=== PATIENT | female | born 1985 | race Hispanic/Latino ===

== ENCOUNTER 2018-12-03 18:05 | Emergency (ER) | payer SELFPAY ==
[2018-12-03] MEDS ORDERED: IPRATROPIUM BROM 0.5MG/2.5ML ONE (19:21)
[2018-12-03] MEDS ORDERED: HYDROCODONE/CHLORPHEN 5 ML/OSYR ONE (19:21)
[2018-12-03] MEDS ORDERED: ALBUTEROL 2.5 MG/3 ML NEB SOL ONE (19:21)
--- NOTE | 2018-12-03 19:35 | RAD REPORT ---
EXAM DESCRIPTION: Richmond Shafer (2 Views)12/03/2018 6:43 pm CLINICAL HISTORY: Cough COMPARISON: September 2018 FINDINGS: The lungs appear clear of acute infiltrate. The heart is normal size IMPRESSION: No acute abnormalities displayed
--- NOTE | 2018-12-03 19:52 | ER ---
Nurse's Notes [facility] Name: Nina Moreno Age: 33 yrs Sex: Female : 1985 Arrival Date: 12/03/2018 Time: 18:08 Bed 6 Private MD: Diagnosis: Bronchitis, not specified as acute or chronic Presentation: 12/03 18:13 Presenting complaint: Patient states: i went to see my PCP coz i was wheezing and he hj told me i had bronchitis; Rx me with ZPac, Mucinex and pro air; symptoms is worsening and my L lower back hurts; reports fever- T- 101.3; Tylenol taken at 12 noon;. Transition of care: patient was not received from another setting of care. Onset of symptoms was December 03, 2018. Risk Assessment: Do you want to hurt yourself or someone else? Patient reports no desire to harm self or others. Initial Sepsis Screen: Does the patient meet any 2 criteria? Yes Does the patient have a suspected source of infection? No. Patient's initial sepsis screen is negative. Care prior to arrival: None. 18:13 Method Of Arrival: Ambulatory 18:13 Acuity: ANAT 3 Triage Assessment: 18:17 Headache History: Denies prior headaches. General: Appears in no apparent distress. hj uncomfortable, Behavior is calm, cooperative, appropriate for age. Pain: Complains of pain in back Pain currently is 6 out of 10 on a pain scale. Pain began Also complains of. Neuro: Level of Consciousness is awake, alert, obeys commands, Oriented to person, place, time, situation, Appropriate for age. 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 - Social history:: Smoking status: Patient/guardian denies using tobacco, Patient/guardian denies using alcohol. - Ebola Screening: : Patient negative for fever greater than or equal to 101.5 degrees Fahrenheit, and additional compatible Ebola Virus Disease symptoms Patient denies exposure to infectious person Patient denies travel to an Ebola-affected area in the 21 days before illness onset. Screenin:17 Abuse screen: Denies threats or abuse. Denies injuries from another. Nutritional hj screening: No deficits noted. Tuberculosis screening: No symptoms or risk factors identified. Fall Risk None identified. Assessment: 18:38 General: Appears in no apparent distress. Behavior is calm, cooperative, appropriate tw2 for age. Pain: Complains of pain in headache and backache. Neuro: Level of Consciousness is awake, alert, obeys commands, Oriented to person, place, time, situation. Neuro: Reports headache. Cardiovascular: Heart tones S1 S2 Capillary refill < 3 seconds. Respiratory: Reports cough that is non-productive, Airway is patent Respiratory effort is even, unlabored, Respiratory pattern is regular, symmetrical. GI: No signs and/or symptoms were reported involving the gastrointestinal system. Abdomen is round non-distended, Bowel sounds present X 4 quads. : No signs and/or symptoms were reported regarding the genitourinary system. EENT: Reports nasal congestion nasal discharge. Derm: No signs and/or symptoms reported regarding the dermatologic system. Musculoskeletal: Circulation, motion, and sensation intact. Range of motion: intact in all extremities. 20:04 Reassessment: Patient and/or family updated on plan of care and expected duration. Pain tl1 level reassessed. Patient is alert, oriented x 3, equal unlabored respirations, skin warm/dry/pink. Patient states symptoms have improved. Vital Signs: 18:17 BP 132 / 89; Pulse 89; Resp 18; Temp 99.8(TE); Pulse Ox 95% on R/A; Weight 105.69 kg; hj Height 5 ft. 3 in. (160.02 cm); Pain 6/10; 19:42 BP 120 / 81; Pulse 89; Resp 18; Pulse Ox 100% on Nebulizer Mask; tl1 20:05 Temp 99.8; Pulse Ox 96% on R/A; Pain 5/10; tl1 18:17 Body Mass Index 41.27 (105.69 kg, 160.02 cm) ED Course: 18:08 Patient arrived in ED. rg4 18:16 Triage completed. hj 18:17 Arm band placed on left wrist. hj 18:19 Patient has correct armband on for positive identification. Placed in gown. Bed in low hj position. Call light in reach. Side rails up X 1. 18:20 Abbey Gardiner FNP-C is [facility]. kb 18:20 Odilon Coleman MD is Attending Physician. kb 18:32 Marii Pugh, RN is Primary Nurse. tw2 18:35 Flu Sent. tw2 18:39 Chest Pa And Lat (2 Views) XRAY In Process Unspecified. EDMS 18:44 X-ray completed. Patient tolerated procedure well. Patient moved back from radiology. bb2 19:02 Report given to HINA Glez. tw2 20:05 No provider procedures requiring assistance completed. Patient did not have IV access tl1 during this emergency room visit. Administered Medications: 19:14 Drug: DuoNeb (3:1) (2.5 mg - 0.5 mg) 3 ml Route: Nebulizer; tl1 20:04 Follow up: Response: No adverse reaction; Marked relief of symptoms tl1 19:15 Drug: Tussionex Pennkinetic ER 5 ml Route: PO; tl1 20:04 Follow up: Response: No adverse reaction; Marked relief of symptoms tl1 Outcome: 19:52 Discharge ordered by . kb 20:05 Discharged to home ambulatory, with family. tl1 20:05 Condition: good 20:05 Discharge instructions given to patient, Instructed on discharge instructions, follow up and referral plans. medication usage, Demonstrated understanding of instructions, follow-up care, medications. 20:11 Patient left the ED. tl1 Signatures: Dispatcher [employer] EDAR Abbey Gardiner FNP-C FNP-Amaris Barrera RN RN tl1 Dontae Guajardo RN RN Marii Pugh RN RN tw2 Breanna Collazo 4 Manju Madrigal bb2 Corrections: (The following items were deleted from the chart) 18:19 18:13 Acuity: ANAT 4 hj hj 18:20 18:17 Pulse 89bpm; Resp 18bpm; Pulse Ox 95% RA; Temp 99.8F Temporal; 105.69 kg; Height hj 5 ft. 3 in.; BMI: 41.2; Pain 6/10; hj
--- NOTE | 2018-12-03 19:53 | EDPHYS ---
Physician Documentation [facility] Name: Nina Moreno Age: 33 yrs Sex: Female : 1985 Arrival Date: 12/03/2018 Time: 18:08 Bed 6 Private MD: ED Physician Odilon Coleman HPI: 12/03 19:15 This 33 yrs old Female presents to ER via Ambulatory with complaints of Cough, kb Headache. 19:15 The patient or guardian reports cough, that is intermittent, described as moderate, kb with no sputum, flu symptoms, low-grade fever. Onset: The symptoms/episode began/occurred last week. Severity of symptoms: At their worst the symptoms were moderate, in the emergency department the symptoms are unchanged. Modifying factors: The symptoms are alleviated by nothing, the symptoms are aggravated by nothing. Associated signs and symptoms: Pertinent positives: fever, Pertinent negatives: chest pain, diarrhea, ear ache, nausea, rhinorrhea, sore throat, vomiting. The patient has not experienced similar symptoms in the past. The patient has been recently seen by a physician: the patient's primary care provider, with similar presenting complaints, and apparently given a diagnosis of bronchitis, was given a prescription for antibiotics. Pt states she has had a cough, congestion, fever, and malaise for a week. Was seen by PCP and diagnosed with bronchitis, given zithromax, nebs, and mucinex. States she stopped taking most of the medications because she thought she was taking too many. States she stopped the neb treatments because it made her cough more and the cough makes her head hurt. 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 - Social history:: Smoking status: Patient/guardian denies using tobacco, Patient/guardian denies using alcohol. - Ebola Screening: : Patient negative for fever greater than or equal to 101.5 degrees Fahrenheit, and additional compatible Ebola Virus Disease symptoms Patient denies exposure to infectious person Patient denies travel to an Ebola-affected area in the 21 days before illness onset. ROS: 19:15 ENT: Negative for injury, pain, and discharge, Neck: Negative for injury, pain, and kb swelling, Cardiovascular: Negative for chest pain, palpitations, and edema, Abdomen/GI: Negative for abdominal pain, nausea, vomiting, diarrhea, and constipation, Back: Negative for injury and pain, MS/Extremity: Negative for injury and deformity, Skin: Negative for injury, rash, and discoloration. 19:15 Constitutional: Positive for body aches, chills, fatigue, fever, malaise, Negative for poor PO intake, weight loss. 19:15 Respiratory: Positive for cough, wheezing, Negative for dyspnea on exertion, hemoptysis, orthopnea, pleurisy, shortness of breath. 19:15 Neuro: Positive for headache. Exam: 19:20 Constitutional: This is a well developed, well nourished patient who is awake, alert, kb and in no acute distress. Head/Face: Normocephalic, atraumatic. ENT: Nares patent. No nasal discharge, no septal abnormalities noted. Tympanic membranes are normal and external auditory canals are clear. Oropharynx with no redness, swelling, or masses, exudates, or evidence of obstruction, uvula midline. Mucous membranes moist. Neck: Trachea midline, no thyromegaly or masses palpated, and no cervical lymphadenopathy. Supple, full range of motion without nuchal rigidity, or vertebral point tenderness. No Meningismus. Chest/axilla: Normal chest wall appearance and motion. Nontender with no deformity. No lesions are appreciated. Cardiovascular: Regular rate and rhythm with a normal S1 and S2. No gallops, murmurs, or rubs. Normal PMI, no JVD. No pulse deficits. Abdomen/GI: Soft, non-tender, with normal bowel sounds. No distension or tympany. No guarding or rebound. No evidence of tenderness throughout. Skin: Warm, dry with normal turgor. Normal color with no rashes, no lesions, and no evidence of cellulitis. MS/ Extremity: Pulses equal, no cyanosis. Neurovascular intact. Full, normal range of motion. Neuro: Awake and alert, GCS 15, oriented to person, place, time, and situation. Cranial nerves II-XII grossly intact. Motor strength 5/5 in all extremities. Sensory grossly intact. Cerebellar exam normal. Normal gait. 19:20 Respiratory: the patient does not display signs of respiratory distress, Respirations: normal, Breath sounds: rhonchi, are scattered. Vital Signs: 18:17 BP 132 / 89; Pulse 89; Resp 18; Temp 99.8(TE); Pulse Ox 95% on R/A; Weight 105.69 kg; hj Height 5 ft. 3 in. (160.02 cm); Pain 6/10; 19:42 BP 120 / 81; Pulse 89; Resp 18; Pulse Ox 100% on Nebulizer Mask; tl1 20:05 Temp 99.8; Pulse Ox 96% on R/A; Pain 5/10; tl1 18:17 Body Mass Index 41.27 (105.69 kg, 160.02 cm) hj MDM: 18:24 Patient medically screened. kb 19:20 Data reviewed: vital signs, nurses notes. Data interpreted: Pulse oximetry: on room air kb is 95 %. Interpretation: normal. 19:52 Counseling: I had a detailed discussion with the patient and/or guardian regarding: the kb historical points, exam findings, and any diagnostic results supporting the discharge/admit diagnosis, lab results, radiology results, the need for outpatient follow up, a family practitioner, to return to the emergency department if symptoms worsen or persist or if there are any questions or concerns that arise at home. ED course: Lungs clear after treatment. 12/03 18:21 Order name: Flu; Complete Time: 19:09 kb 12/03 18:21 Order name: Chest Pa And Lat (2 Views) XRAY; Complete Time: 19:38 kb Administered Medications: 19:14 Drug: DuoNeb (3:1) (2.5 mg - 0.5 mg) 3 ml Route: Nebulizer; tl1 20:04 Follow up: Response: No adverse reaction; Marked relief of symptoms tl1 19:15 Drug: Tussionex Pennkinetic ER 5 ml Route: PO; tl1 20:04 Follow up: Response: No adverse reaction; Marked relief of symptoms tl1 Disposition: 12/04 07:19 Co-signature as Attending Physician, Odilon Coleman MD. rn Disposition: 12/03/18 19:52 Discharged to Home. Impression: Bronchitis, not specified as acute or chronic. - Condition is Stable. - Discharge Instructions: Acute Bronchitis, [id number]. - Medication Reconciliation Form, Thank You Letter, Antibiotic Education, Prescription Opioid Use, Work release form form. - Follow up: Emergency Department; When: As needed; Reason: Worsening of condition. Follow up: Private Physician; When: 2 - 3 days; Reason: Recheck today's complaints, Continuance of care, Re-evaluation by your physician. Signatures: Dispatcher [employer] EDMS Abbey Gardiner, CARE AID-C CARE AID-Ckb Odilon Coleman MD MD rn Lasagna, Tonya, RN RN tl1 Dontae Guajardo RN RN Corrections: (The following items were deleted from the chart) 12/03 20:11 19:52 12/03/2018 19:52 Discharged to Home. Impression: Bronchitis, not specified as tl1 acute or chronic. Condition is Stable. Forms are Work release form, Medication Reconciliation Form, Thank You Letter, Antibiotic Education, Prescription Opioid Use. Follow up: Emergency Department; When: As needed; Reason: Worsening of condition. Follow up: Private Physician; When: 2 - 3 days; Reason: Recheck today's complaints, Continuance of care, Re-evaluation by your physician. kb
== END 2018-12-03 20:11 | disposition home or self-care (01) ==
LOC: ER 18:05
DX: J40 Bronchitis, not specified as acute or chronic (principal); E03.9 Hypothyroidism, unspecified; Z79.899 Other long term (current) drug therapy
CPT/HCPCS: 71046; 87804; 94640; 99284

== ENCOUNTER 2019-02-18 14:53 | Emergency (ER) | payer SELFPAY ==
[2019-02-18] MEDS ORDERED: ONDANSETRON 4 MG/2 ML VIAL ONE (16:18)
[2019-02-18] MEDS ORDERED: NA CHLORIDE 0.9% 1,000 ML ONE (16:18)
[2019-02-18] MEDS ORDERED: MORPHINE 4 MG/ML SYR ONE (16:18)
[2019-02-18 16:30] LABS: Absolute Lymphocytes (CBC) 0.5 K/uL (0.7-4.9); Absolute Monocytes 0.9 K/uL (0.1-1.3); Absolute Neutrophil 18.4 K/uL (1.8-8.0); Basophils % 0.4 % (0-1.3); Hematocrit 45.1 % (36.0-45.0); Lymphocytes % 2.6 % (15.3-44.8); MPV 10.3 fL (7.6-11.3); Monocytes % 4.5 % (3.3-12.3); RBC Red Blood Cell Count 4.87 M/uL (3.86-4.86)
[2019-02-18 16:58] LABS: Blood Morphology Comment NOTED (NOT SEEN); Platelet Estimate ADEQ; Stomatocytes 1+; Urine White Blood Cell Casts OK
--- NOTE | 2019-02-18 17:14 | EKG ---
Test Date: 2019-02-18 Test Time: 15:05:11 Feeder Tender: MILLIE MEASUREMENT RESULTS: Intervals: Rate: 128 NH: 160 QRSD: 78 QT: 292 QTc: 426 [place]: P: 36 NH: 160 QRS: -13 T: 23 INTERPRETIVE STATEMENTS: Sinus tachycardia Anterior infarct, age undetermined Abnormal ECG Compared to ECG 09/29/2008 09:18:16 Myocardial infarct finding now present Sinus rhythm no longer present Sinus arrhythmia no longer present Electronically Signed On 02-18-19 17:13:22 CDT by Jarred Callejas
[2019-02-18 17:15] LABS: ALT/SGPT 24 U/L (12-78); AST/SGOT 15 U/L (15-37); Albumin 3.7 g/dL (3.4-5.0); Alkaline Phosphatase 89 U/L (45-117); BUN Blood Urea Nitrogen 11 mg/dL (7-18); Bicarbonate 22 mmol/L (21-32); Bilirubin Direct 0.2 mg/dL (0-0.2); Bilirubin Total 0.7 mg/dL (0.2-1.0); Glucose Level 113 mg/dL (74-106); Lipase 52 U/L (73-393); Potassium 3.3 mmol/L (3.5-5.1); Protein, Total 7.8 g/dL (6.4-8.2); Sodium Level 135 mmol/L (136-145); Troponin (Emerg Dept Use Only) < 0.02 ng/mL (0.0-0.045)
--- NOTE | 2019-02-18 17:47 | RAD REPORT ---
EXAM DESCRIPTION: CT - Chest Abdomen Pelvis W Cont - 02/18/2019 5:34 pm CLINICAL HISTORY: Chest and abdominal pain COMPARISON: None TECHNIQUE: Computed axial tomography of the chest, abdomen and pelvis was obtained. 100 cc Isovue-30 0 was administered intravenously. Oral contrast was given. All CT scans are performed using dose optimization technique as appropriate and may include automated exposure control or mA/KV adjustment according to patient size. FINDINGS: The lungs are clear. No mediastinal or hilar lymphadenopathy Minimal pleural effusions are present. A pericardial effusion is not noted The liver, spleen, pancreas, adrenals and kidneys appear unremarkable The wall of the right colon is mildly to moderately thickened. Minimal amount of free fluid IMPRESSION: Mild to moderate thickening of the wall of the right colon probably indicating a colitis
[2019-02-18] MEDS ORDERED: PROMETHAZINE 25 MG/ML VIAL ONE (19:38)
[2019-02-18] MEDS ORDERED: KETOROLAC 30 MG/ML INJ ONE (19:38)
[2019-02-18] MEDS ORDERED: CIPROFLOXACIN HCL 500 MG TAB ONE (20:16)
[2019-02-18] MEDS ORDERED: metroNIDAZOLE 500 MG TABLET ONE (20:16)
--- NOTE | 2019-02-18 20:54 | ER ---
Nurse's Notes [facility] Name: Nina Moreno Age: 33 yrs Sex: Female : 1985 Arrival Date: 02/18/2019 Time: 14:55 Bed 23 Private MD: Diagnosis: Colitis Presentation: 02/18 14:59 Presenting complaint: Patient states: matt been having diarrhea and vomiting since yesterday; and today i started having chest pain; pain is 7/10; took motrin; last dose at 12 noon; reports fever; T- 101.2;. Transition of care: patient was not received from another setting of care. Onset of symptoms was February 18, 2019. Risk Assessment: Do you want to hurt yourself or someone else? Patient reports no desire to harm self or others. Initial Sepsis Screen: Does the patient meet any 2 criteria? No. Patient's initial sepsis screen is negative. Does the patient have a suspected source of infection? No. Patient's initial sepsis screen is negative. Care prior to arrival: None. 14:59 Method Of Arrival: Ambulatory 14:59 Acuity: ANAT 3 Triage Assessment: 15:01 General: Appears in no apparent distress. uncomfortable, Behavior is calm, cooperative, hj appropriate for age. Pain: Complains of pain in abdomen Pain currently is 7 out of 10 on a pain scale. GI: Reports lower abdominal pain, diarrhea, nausea, vomiting. 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 - Social history:: Smoking status: Patient/guardian denies using tobacco, Patient/guardian denies using alcohol. - Ebola Screening: : Patient negative for fever greater than or equal to 101.5 degrees Fahrenheit, and additional compatible Ebola Virus Disease symptoms Patient denies exposure to infectious person Patient denies travel to an Ebola-affected area in the 21 days before illness onset. Screenin:01 Abuse screen: Denies threats or abuse. Denies injuries from another. Nutritional hj screening: No deficits noted. Tuberculosis screening: No symptoms or risk factors identified. Fall Risk None identified. Assessment: 15:02 GI: Abdomen is distended. hj 15:47 General: Appears in no apparent distress. uncomfortable, ill, Behavior is calm, aj1 cooperative, appropriate for age. Pain: Complains of pain in chest and abdomen. Neuro: Level of Consciousness is awake, alert, obeys commands. Cardiovascular: Reports chest pain, Heart tones S1 S2 present Patient's skin is warm and dry. Rhythm is sinus tachycardia. Respiratory: Reports cough that is persistent Airway is patent Respiratory effort is even, unlabored, Respiratory pattern is regular, symmetrical, Breath sounds are clear bilaterally. GI: Abdomen is non-distended, Reports diarrhea, nausea, vomiting. : No signs and/or symptoms were reported regarding the genitourinary system. EENT: No signs and/or symptoms were reported regarding the EENT system. Derm: No signs and/or symptoms reported regarding the dermatologic system. Skin is flushed. Musculoskeletal: No signs and/or symptoms reported regarding the musculoskeletal system. Circulation, motion, and sensation intact. 16:32 Reassessment: Patient appears in no apparent distress at this time. No changes from aj1 previously documented assessment. Patient and/or family updated on plan of care and expected duration. Pain level reassessed. Patient is alert, oriented x 3, equal unlabored respirations, skin warm/dry/pink. 17:48 Reassessment: Patient appears in no apparent distress at this time. No changes from aj1 previously documented assessment. Patient and/or family updated on plan of care and expected duration. Pain level reassessed. Patient is alert, oriented x 3, equal unlabored respirations, skin warm/dry/pink. 18:45 Reassessment: Patient states that she held down the Sprite, but she is having a lot of aj1 abdominal pain. Notified LORAINE Donovan. 19:45 Reassessment: Patient appears in no apparent distress at this time. No changes from aj1 previously documented assessment. Patient and/or family updated on plan of care and expected duration. Pain level reassessed. Patient is alert, oriented x 3, equal unlabored respirations, skin warm/dry/pink. Patient states symptoms have improved. 20:45 Reassessment: Patient appears in no apparent distress at this time. No changes from aj1 previously documented assessment. Patient and/or family updated on plan of care and expected duration. Pain level reassessed. Patient is alert, oriented x 3, equal unlabored respirations, skin warm/dry/pink. 21:21 Reassessment: Patient appears in no apparent distress at this time. No changes from aj1 previously documented assessment. Patient and/or family updated on plan of care and expected duration. Pain level reassessed. Patient is alert, oriented x 3, equal unlabored respirations, skin warm/dry/pink. Vital Signs: 15:02 BP 130 / 67; Pulse 132; Resp 18; Temp 100.6(O); Pulse Ox 97% on R/A; Weight 92.99 kg; hj Height 5 ft. 3 in. (160.02 cm); Pain 7/10; 15:42 BP 103 / 74; Pulse 117; Resp 20; Pulse Ox 95% on R/A; aj1 16:00 BP 114 / 70 LA (auto/lg); Pulse 115; Resp 19; Temp 98.0; Pulse Ox 97% ; Pain 7/10; jp3 16:32 BP 109 / 76; Pulse 108; Resp 20; Pulse Ox 96% on R/A; aj1 17:48 BP 157 / 64; Pulse 101; Resp 20; Pulse Ox 100% on R/A; aj1 18:45 BP 115 / 68; Pulse 106; Resp 18; Pulse Ox 97% ; aj1 21:25 BP 107 / 66; Pulse 104; Resp 20; Pulse Ox 100% on R/A; aj1 15:02 Body Mass Index 36.32 (92.99 kg, 160.02 cm) ED Course: 14:55 Patient arrived in ED. as 15:00 Triage completed. hj 15:02 Arm band placed on left wrist. hj 15:04 Patient has correct armband on for positive identification. Placed in gown. Bed in low hj position. Call light in reach. Side rails up X 1. Adult w/ patient. 15:13 EKG done, by commercial technician. reviewed by Ant Rice MD. sm3 15:18 Ashlyn Mello, RN is Primary Nurse. aj1 15:45 Warm blanket given. Pillow given. jp3 15:45 ear mold laboratory technician on. Pulse ox on. NIBP on. jp3 15:47 No provider procedures requiring assistance completed. aj1 15:50 Missed attempt(s): 22 gauge in right forearm. Bleeding controlled, band aid applied, jp3 catheter tip intact. 15:51 Prabhjot Castellanos PA [facility] 15:51 Ant Rice MD is Attending Physician. m 16:00 Initial lab(s) drawn, by me, sent to lab. Flu and/or RSV swab sent to lab. Inserted jp3 saline lock: 22 gauge in left forearm, using aseptic technique. Blood collected. 17:34 CT Chest, Abdomen, Pelvis - W/Contrast In Process Unspecified. EDMS 20:52 Hector Mendez MD is Referral Physician. jmm 21:20 IV discontinued, intact, bleeding controlled, No redness/swelling at site. Pressure aj1 dressing applied. Administered Medications: 16:11 Drug: NS 0.9% 1000 ml Route: IV; Rate: 1 bolus; Site: left forearm; mg2 17:15 Follow up: IV Status: Completed infusion; IV Intake: 1000ml aj1 16:11 Drug: morphine 4 mg Route: IVP; Site: left forearm; mg2 17:15 Follow up: Response: No adverse reaction; Pain is decreased aj1 16:11 Drug: Zofran 4 mg Route: IVP; Site: left forearm; mg2 17:15 Follow up: Response: No adverse reaction; Pain is decreased aj1 19:32 Drug: Promethazine 12.5 mg Route: IVP; Site: left antecubital; aj1 20:00 Follow up: Response: No adverse reaction; Pain is decreased aj1 19:33 Drug: Ketorolac 30 mg Route: IVP; Site: left antecubital; aj1 20:00 Follow up: Response: No adverse reaction; Pain is decreased aj1 20:08 Drug: Cipro 500 mg Route: PO; aj1 21:19 Follow up: Response: No adverse reaction aj1 20:08 Drug: Flagyl 500 mg Route: PO; aj1 21:19 Follow up: Response: No adverse reaction aj1 Intake: 17:15 IV: 1000ml; Total: 1000ml. aj1 Outcome: 20:53 Discharge ordered by . jmm 21:22 Discharged to home ambulatory. aj1 21:22 Condition: good 21:22 Discharge instructions given to patient, Instructed on discharge instructions, follow up and referral plans. medication usage, Demonstrated understanding of instructions, follow-up care, medications. 21:26 Patient left the ED. aj1 Signatures: Dispatcher [employer] Ashlyn Cordova RN RN aj1 Prabhjot Castellanos PA PA jmm Martinez, Amelia as Joaquin, Henry, RN RN hj Gardose, Michele, RN RN [facility] Carla Aly 3 Dez Cheng 3 Corrections: (The following items were deleted from the chart) 15:04 15:02 Pulse 132bpm; Resp 18bpm; Pulse Ox 97% RA; Temp 100.6F Oral; 92.99 kg; Height 5 hj ft. 3 in.; BMI: 36.3; Pain 7/10; hj
--- NOTE | 2019-02-18 20:54 | EDPHYS ---
Physician Documentation [facility] Name: Nina Moreno Age: 33 yrs Sex: Female : 1985 Arrival Date: 02/18/2019 Time: 14:55 Bed 23 Private MD: ED Physician Ant Rice HPI: 02/18 16:08 This 33 yrs old Female presents to ER via Ambulatory with complaints of jmm Vomiting/Diarrhea, Chest Pain. 16:08 The patient presents to the emergency department with nausea, vomiting, diarrhea, jmm abdominal pain. Onset: The symptoms/episode began/occurred acutely, yesterday. Possible causes: unknown. This is a 33 year old female with a history of hypothyroidism that presents to the ED with complaints of diarrhea which began yesterday. patient subsequently developed vomiting. patient complains of chest pain with vomiting. lower abdominal pain radiates to her back. . 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 - Social history:: Smoking status: Patient/guardian denies using tobacco, Patient/guardian denies using alcohol. - Ebola Screening: : Patient negative for fever greater than or equal to 101.5 degrees Fahrenheit, and additional compatible Ebola Virus Disease symptoms Patient denies exposure to infectious person Patient denies travel to an Ebola-affected area in the 21 days before illness onset. ROS: 16:08 Constitutional: Positive for body aches, fever. jmm 16:08 Cardiovascular: Positive for chest pain. 16:08 Abdomen/GI: Positive for abdominal pain, nausea and vomiting, diarrhea. 16:08 All other systems are negative. Exam: 16:08 Head/Face: atraumatic. Eyes: EOMI, no conjunctival erythema appreciated ENT: Moist jmm Mucus Membranes Neck: Trachea midline, Supple Chest/axilla: Normal chest wall appearance and motion. Cardiovascular: Regular rate and rhythm. No edema appreciated Respiratory: Normal respirations, no respiratory distress appreciated 16:08 Constitutional: The patient appears alert, awake, uncomfortable. 16:08 Abdomen/GI: Inspection: abdomen appears normal, Bowel sounds: normal, Palpation: soft, mild abdominal tenderness, in the epigastric area, right lower quadrant, left lower quadrant and abdomen diffusely. 16:08 Back: ROM is normal. 16:08 Musculoskeletal/extremity: ROM: intact in all extremities. 16:08 Skin: Appearance: Color: normal in color. 16:08 Neuro: Orientation: is normal, Mentation: is normal, Memory: is normal, Motor: is normal. 16:08 Psych: Behavior/mood is pleasant, cooperative. Vital Signs: 15:02 BP 130 / 67; Pulse 132; Resp 18; Temp 100.6(O); Pulse Ox 97% on R/A; Weight 92.99 kg; hj Height 5 ft. 3 in. (160.02 cm); Pain 7/10; 15:42 BP 103 / 74; Pulse 117; Resp 20; Pulse Ox 95% on R/A; aj1 16:00 BP 114 / 70 LA (auto/lg); Pulse 115; Resp 19; Temp 98.0; Pulse Ox 97% ; Pain 7/10; jp3 16:32 BP 109 / 76; Pulse 108; Resp 20; Pulse Ox 96% on R/A; aj1 17:48 BP 157 / 64; Pulse 101; Resp 20; Pulse Ox 100% on R/A; aj1 18:45 BP 115 / 68; Pulse 106; Resp 18; Pulse Ox 97% ; aj1 21:25 BP 107 / 66; Pulse 104; Resp 20; Pulse Ox 100% on R/A; aj1 15:02 Body Mass Index 36.32 (92.99 kg, 160.02 cm) MDM: 16:08 Patient medically screened. [facility] 20:52 Data reviewed: vital signs, nurses notes. Counseling: I had a detailed discussion with mitchel the patient and/or guardian regarding: the historical points, exam findings, and any diagnostic results supporting the discharge/admit diagnosis, lab results, radiology results, the need for outpatient follow up, to return to the emergency department if symptoms worsen or persist or if there are any questions or concerns that arise at home. Response to treatment: the patient's symptoms have markedly improved after treatment, and as a result, I will discharge patient. 02/18 16:04 Order name: Basic Metabolic Panel; Complete Time: 17:34 [facility] 02/18 16:04 Order name: CBC with Diff; Complete Time: 17:05 [facility] 02/18 16:04 Order name: Creatinine for Radiology; Complete Time: 17:34 [facility] 02/18 16:04 Order name: Hepatic Function; Complete Time: 17:34 [facility] 02/18 16:04 Order name: Lipase; Complete Time: 17:34 [facility] 02/18 16:04 Order name: Troponin (emerg Dept Use Only); Complete Time: 17:34 [facility] 02/18 16:04 Order name: CT Chest, Abdomen, Pelvis - W/Contrast; Complete Time: 17:49 [facility] 02/18 16:10 Order name: Flu; Complete Time: 16:51 02/18 16:33 Order name: CBC Smear Scan; Complete Time: 17:05 [facility] 02/18 19:41 Order name: Urine Dipstick--Ancillary (enter results); Complete Time: 21:18 [facility] 02/18 14:58 Order name: EKG; Complete Time: 14:59 02/18 16:04 Order name: IV Saline Lock; Complete Time: 16:09 [facility] 02/18 16:04 Order name: Labs collected and sent; Complete Time: 16:10 [facility] 02/18 17:50 Order name: PO challenge; Complete Time: 18:12 [facility] Administered Medications: 16:11 Drug: NS 0.9% 1000 ml Route: IV; Rate: 1 bolus; Site: left forearm; mg2 17:15 Follow up: IV Status: Completed infusion; IV Intake: 1000ml aj1 16:11 Drug: morphine 4 mg Route: IVP; Site: left forearm; mg2 17:15 Follow up: Response: No adverse reaction; Pain is decreased aj1 16:11 Drug: Zofran 4 mg Route: IVP; Site: left forearm; mg2 17:15 Follow up: Response: No adverse reaction; Pain is decreased aj1 19:32 Drug: Promethazine 12.5 mg Route: IVP; Site: left antecubital; aj1 20:00 Follow up: Response: No adverse reaction; Pain is decreased aj1 19:33 Drug: Ketorolac 30 mg Route: IVP; Site: left antecubital; aj1 20:00 Follow up: Response: No adverse reaction; Pain is decreased aj1 20:08 Drug: Cipro 500 mg Route: PO; aj1 :19 Follow up: Response: No adverse reaction aj1 20:08 Drug: Flagyl 500 mg Route: PO; aj 21:19 Follow up: Response: No adverse reaction aj1 Disposition: 02/19 06:56 Co-signature as Attending Physician, Ant Rice MD I agree with the assessment and wa plan of care. Disposition: 02/18/19 20:53 Discharged to Home. Impression: Colitis. - Condition is Stable. - Discharge Instructions: Colitis. - Prescriptions for Flagyl 500 mg Oral Tablet - take 1 tablet by ORAL route every 8 hours for 10 days; 30 tablet. Ultracet 37.5- 325 mg Oral Tablet - take 1 tablet by ORAL route every 6 hours - for up to 5 days; do not exceed 8 tablets per day.; 20 tablet. Cipro 500 mg Oral Tablet - take 1 tablet by ORAL route every 12 hours for 10 days; 20 tablet. promethazine 25 mg Oral Tablet - take 1 tablet by ORAL route every 6 hours As needed; 20 tablet. - Medication Reconciliation Form, Thank You Letter, Antibiotic Education, Prescription Opioid Use form. - Follow up: Hector Mendez MD; When: 2 - 3 days; Reason: Recheck today's complaints, Continuance of care, Re-evaluation by your physician. Signatures: Dispatcher [employer] EDAshlyn Sullivan RN RN aj1 Prabhjot Castellanos PA PA jmm Joaquin, Henry, RN RN hj Appiah, William, MD MD wa Gardose, Michele RN HINA mg2 Corrections: (The following items were deleted from the chart) 02/18 21:26 20:53 02/18/2019 20:53 Discharged to Home. Impression: Colitis. Condition is Stable. aj1 Forms are Medication Reconciliation Form, Thank You Letter, Antibiotic Education, Prescription Opioid Use. Follow up: Hector Mendez; When: 2 - 3 days; Reason: Recheck today's complaints, Continuance of care, Re-evaluation by your physician. mitchel
[2019-02-18 21:14] LABS: Urine Blood 2+ (NEG); Urine Glucose NEGATIVE (NEG); Urine Protein 1+ (NEG); Urine Specific Gravity <1.005 (1.005-1.030)
== END 2019-02-18 21:26 | disposition home or self-care (01) ==
LOC: ER 14:53
DX: K52.9 Noninfective gastroenteritis and colitis, unspecified (principal); E03.9 Hypothyroidism, unspecified
CPT/HCPCS: 36415; 71260; 74177; 80048; 80076; 81003; 83690; 84484; 85025; 87804; 93005; 99284; J2405; J2550; J7030; Q9967

== ENCOUNTER 2022-05-25 00:30 | Emergency (ER) | payer SELFPAY ==
[2022-05-25 01:48] LABS: Absolute Lymphocytes (CBC) 1.4 K/uL (0.7-4.9); Hematocrit 41.2 % (36.0-45.0); MCV 85.3 fL (80-100); MPV 9.7 fL (7.6-11.3); RBC Red Blood Cell Count 4.83 M/uL (3.86-4.86)
[2022-05-25] MEDS ORDERED: ONDANSETRON 4 MG/2 ML VIAL ONE ×2 (01:52→05:09)
[2022-05-25] MEDS ORDERED: MORPHINE 4 MG/ML SYR ONE ×2 (01:52→05:08)
[2022-05-25] MEDS ORDERED: NA CHLORIDE 0.9% 1,000 ML ONE (01:52)
[2022-05-25 01:59] LABS: Albumin 4.2 g/dL (3.4-5.0); Bilirubin Total 0.4 mg/dL (0.2-1.0); Potassium 3.5 mmol/L (3.5-5.1); Protein, Total 8.2 g/dL (6.4-8.2)
[2022-05-25 02:10] LABS: Urine Blood 2+ (Negative); Urine Glucose Negative (Negative); Urine Protein 1+ (Negative); Urine Specific Gravity >=1.030 (1.005-1.030)
--- NOTE | 2022-05-25 04:35 | EDPHYS ---
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 - Social history:: Smoking status: Patient denies any tobacco usage or history of. Vital Signs: 00:52 BP 128 / 93; Pulse 72; Resp 17 S; Temp 97.5(O); Pulse Ox 100% on R/A; Weight 75.75 kg as6 (R); Height 5 ft. 3 in. (160.02 cm) (R); Pain 6/10; 00:52 Body Mass Index 29.58 (75.75 kg, 160.02 cm) as6 MDM: 04:34 Patient medically screened. kdr 05/25 00:52 Order name: CBC with Diff; Complete Time: 04:27 kdr 05/25 00:52 Order name: CMP; Complete Time: 04:27 kdr 05/25 00:52 Order name: Lipase; Complete Time: 04:27 kdr 05/25 00:52 Order name: CT Abd/Pelvis - IV Contrast Only kdr 05/25 01:34 Order name: US Abdomen Limited kdr 05/25 02:10 Order name: Urine Dipstick-Ancillary; Complete Time: 04:27 EDMS 05/25 00:52 Order name: IV Saline Lock; Complete Time: 01:12 kdr 05/25 03:34 Order name: US Transvaginal Study (Probe) kdr 05/25 00:52 Order name: Labs collected and sent; Complete Time: 01:12 kdr Administered Medications: 01:49 Drug: NS 0.9% 1000 ml Route: IV; Rate: 1 bolus; Site: right antecubital; as6 05:10 Follow up: Response: No adverse reaction kd3 01:49 Drug: morphine 4 mg Route: IVP; Infused Over: 4 mins; Site: right antecubital; as6 05:10 Follow up: Response: No adverse reaction; Pain is decreased kd3 01:49 Drug: Zofran (Ondansetron) 4 mg Route: IVP; Site: right antecubital; as6 05:10 Follow up: Response: No adverse reaction kd3 05:09 Drug: morphine 4 mg Route: IVP; Infused Over: 4 mins; Site: right antecubital; kd3 05:10 Follow up: Response: No adverse reaction kd3 05:09 Drug: [place] (HYDROcodone-acetaminophen) 5 mg-325 mg 1 tabs Route: PO; kd3 05:10 Follow up: Response: No adverse reaction kd3 05:09 Drug: Zofran (Ondansetron) 4 mg Route: IVP; Site: right antecubital; kd3 05:10 Follow up: Response: No adverse reaction kd3 Disposition Summary: 05/25/22 04:34 Discharge Ordered Location: Home kdr Problem: new kdr Symptoms: have improved kdr Condition: Stable kdr Diagnosis - Lower abdominal pain, unspecified - LLQ and Left flank pain kdr Followup: kdr - With: Private Physician - When: 2 - 3 days - Reason: If symptoms return, Further diagnostic work-up, Recheck today's complaints, Continuance of care, Re-evaluation by your physician Discharge Instructions: - Discharge Summary Sheet kdr - Flank Pain, Adult kdr - Abdominal Pain, Adult, [id number] kdr Forms: - Medication Reconciliation Form kdr - Thank You Letter kdr - Antibiotic Education kdr - Prescription Opioid Use kdr Prescriptions: - Bactrim DS 800-160 mg Oral Tablet - take 1 tablet by ORAL route every 12 hours for 3 days; 6 tablet; Refills: 0, kdr Product Selection Permitted - Flomax 0.4 mg Oral capsule - take 1 capsule by ORAL route once daily 1/2 hour following the same meal each kdr day; 10 capsule; Refills: 0, Product Selection Permitted - Zofran 4 mg Oral Tablet - take 1 tablet by ORAL route every 4-6 hours As needed; 12 tablet; Refills: 0, kdr Product Selection Permitted - Tylenol-Codeine #3 300 mg-30 mg Oral - take 1 tablet by ORAL route every 4-6 hours As needed; 12 tablet; Refills: 0, kdr Product Selection Permitted Signatures: Dispatcher [employer] Slade Russell MD MD kdr Slawson, Ashby RN RN as6 Sonja Albrecht RN RN kd3
--- NOTE | 2022-05-25 04:35 | ER ---
Nurse's Notes [facility] Name: Nina Moreno Age: 37 yrs Sex: Female : 1985 Arrival Date: 05/25/2022 Time: 00:32 Bed 5 Private MD: Diagnosis: Lower abdominal pain, unspecified-LLQ and Left flank pain Presentation: 05/25 00:52 Chief complaint: Patient states: "I am having bad lower abdominal pain and nausea and as6 diarrhea". Coronavirus screen: At this time, the client does not indicate any symptoms associated with coronavirus-19. Ebola Screen: No symptoms or risks identified at this time. Initial Sepsis Screen: Does the patient meet any 2 criteria? No. Patient's initial sepsis screen is negative. Does the patient have a suspected source of infection? No. Patient's initial sepsis screen is negative. Risk Assessment: Do you want to hurt yourself or someone else? Patient reports no desire to harm self or others. Onset of symptoms was May 23, 2022. 00:52 Method Of Arrival: Ambulatory as6 00:52 Acuity: ANAT 3 as6 PATIENT SITTER: 00:56 LMP 05/16/2022 as6 Historical: - Allergies: 00:54 No Known Allergies; as6 - Home Meds: 00:54 levothyroxine 150 mcg oral tab 1 tab once daily [Active]; as6 - PMHx: 00:54 Hypothyroidism; as6 - PSHx: 00:54 goiter; as6 - Immunization history:: Client reports receiving the 2nd dose of the Covid vaccine, moderna . - Social history:: Smoking status: Patient denies any tobacco usage or history of. Screenin:00 Abuse screen: Denies threats or abuse. Denies injuries from another. Nutritional as6 screening: No deficits noted. Tuberculosis screening: No symptoms or risk factors identified. Fall Risk None identified. Assessment: 00:55 General: Appears in no apparent distress. uncomfortable, Behavior is calm, cooperative. as6 Pain: Complains of pain in suprapubic area Pain radiates to low back area and left lower quadrant. Neuro: Level of Consciousness is awake, alert, obeys commands, Oriented to person, place, time, situation. Cardiovascular: Patient's skin is warm and dry. Respiratory: Respiratory effort is even, unlabored. GI: Reports lower abdominal pain, diarrhea, nausea. Vital Signs: 00:52 BP 128 / 93; Pulse 72; Resp 17 S; Temp 97.5(O); Pulse Ox 100% on R/A; Weight 75.75 kg as6 (R); Height 5 ft. 3 in. (160.02 cm) (R); Pain 6/10; 00:52 Body Mass Index 29.58 (75.75 kg, 160.02 cm) as6 ED Course: 00:32 Patient arrived in ED. bp1 00:48 Slade Hernandez MD is Attending Physician. kdr 00:49 Agustin Carballo RN is Primary Nurse. as6 00:54 Triage completed. as6 00:55 Arm band placed on. as6 01:00 Bed in low position. Call light in reach. Side rails up X 1. Adult w/ patient. Pulse ox as6 on. NIBP on. Warm blanket given. 01:06 Inserted saline lock: 18 gauge in right antecubital area, using aseptic technique. as6 Blood collected. 01:12 CBC with Diff Sent. as6 01:12 CMP Sent. as6 01:12 Lipase Sent. as6 02:01 US Abdomen Limited In Process Unspecified. EDMS 02:30 CT Abd/Pelvis - IV Contrast Only In Process Unspecified. EDMS 04:15 US Transvaginal Study (Probe) In Process Unspecified. EDMS Administered Medications: 01:49 Drug: NS 0.9% 1000 ml Route: IV; Rate: 1 bolus; Site: right antecubital; as6 05:10 Follow up: Response: No adverse reaction kd3 01:49 Drug: morphine 4 mg Route: IVP; Infused Over: 4 mins; Site: right antecubital; as6 05:10 Follow up: Response: No adverse reaction; Pain is decreased kd3 01:49 Drug: Zofran (Ondansetron) 4 mg Route: IVP; Site: right antecubital; as6 05:10 Follow up: Response: No adverse reaction kd3 05:09 Drug: morphine 4 mg Route: IVP; Infused Over: 4 mins; Site: right antecubital; kd3 05:10 Follow up: Response: No adverse reaction kd3 05:09 Drug: [place] (HYDROcodone-acetaminophen) 5 mg-325 mg 1 tabs Route: PO; kd3 05:10 Follow up: Response: No adverse reaction kd3 05:09 Drug: Zofran (Ondansetron) 4 mg Route: IVP; Site: right antecubital; kd3 05:10 Follow up: Response: No adverse reaction kd3 Outcome: 04:34 Discharge ordered by . kdr 05:11 Patient left the ED. kd3 Signatures: Dispatcher [employer] EDMS Slade Hernandez MD MD kdr Paniauga, Brittany bp1 Slawson, Ashby RN RN as6 Sonja Albrecht RN RN kd3
[2022-05-25] MEDS ORDERED: HYDROCODONE/APAP 5/325 MG TAB ONE (05:08)
[2022-05-25 05:24] VITALS: BP 128/93; TEMP 97.5; O2SAT 100
--- NOTE | 2022-05-25 14:20 | RAD REPORT ---
EXAM DESCRIPTION: US - Transvaginal Study Probe - 05/25/2022 5:02 am CLINICAL HISTORY: LLQ abdominal pain COMPARISON: CT Abdomen/Pelvis With Contrast 05/25/2022 at 2:22 AM TECHNIQUE: Grayscale, color Doppler, and duplex Doppler transvaginal pelvis images. FINDINGS: Uterus anteverted measuring 8.9 x 4.1 x 4.8 cm. No uterine leiomyoma. Endometrial stripe measures 6 mm and within normal limits. Both ovaries show normal color flow and Doppler waveform. No evidence of ovarian torsion. Right ovary measures 3.0 x 2.4 x 2.2 cm. Right ovarian dominant follicle measuring 1.2 x 0.9 x 0.9 cm. No follow up imaging is recommended. Reference: Radiology 2019 Nov;293(2):359-371 Left ovary unremarkable and measuring 2.5 x 1.6 x 1.9 cm. Minimal free fluid in pelvic cul-de-sac. IMPRESSION: Unremarkable US pelvis transvaginal. Electronically signed by: Antoni Lindsey MD 05/25/2022 4:48 AM CDT Due to temporary technical issues with the PACS/Fluency reporting system, reports are being signed by the in house radiologists without. review as a courtesy to insure prompt reporting. The interpreting radiologist is fully responsible for the content of the report.
--- NOTE | 2022-05-25 15:39 | RAD REPORT ---
EXAM DESCRIPTION: US - Abdomen Exam Limited - 05/25/2022 2:42 am CLINICAL HISTORY: LLQ COMPARISON: None. TECHNIQUE: Real-time sonographic images of the gallbladder were obtained using a curved multihertz t ransducer. FINDINGS: Liver: The visualized liver has normal contour and echogenicity. The common bile duct bambi ures 0.3 cm. Gallbladder: No gallstones identified. Gallbladder wall thickness of 0 point cm. Sonographic Pederson 's sign is negative. IMPRESSION: 1. No gallstones identified. Electronically signed by: Benedict Larson 05/25/2022 2:26 AM CDT Due to temporary technical issues with the PACS/Fluency reporting system, reports are being signed by the in house radiologists without. review as a courtesy to insure prompt reporting. The interpreting radiologist is fully responsible for the content of the report.
--- NOTE | 2022-05-25 15:59 | RAD REPORT ---
EXAM DESCRIPTION: CT - Abdomen Pelvis W Contrast - 05/25/2022 6:03 am CLINICAL HISTORY: Abdominal pain, acute, nonlocalized TECHNIQUE: Axial computed tomography images of the abdomen and pelvis with intravenous contrast. S agittal and coronal reformatted images were created and reviewed. This CT exam was performed using one or more of the following dose reduction techniques: automated exposure control, adjustment of t he mA and/or kV according to patient size, and/or use of iterative reconstruction technique. COMPARISON: CT Abdomen Pelvis dated 02/18/2019 FINDINGS: Lung bases: Unremarkable. No mass. No consolidation. ABDOMEN: Liver: Unremarkable. No mass. Gallbladder and bile ducts: Unremarkable. No calcified stones. No ductal dilation. Pancreas: Unremarkable. No mass. No ductal dilation. Spleen: Unremarkable. No splenomegaly. Adrenals: Unremarkable. No mass. Kidneys and ureters: Subcentimeter left renal cortical hypodensity which is too small to characteri ze. No follow-up imaging is necessary. No hydronephrosis. Stomach and bowel: Postsurgical changes of the proximal stomach. Moderate stool within the proximal large bowel. No bowel obstruction. No appreciable mucosal thickening. PELVIS: Appendix: Normal caliber appendix. No findings to suggest acute appendicitis. Bladder: Unremarkable. No mass. Reproductive: Unremarkable as visualized. ABDOMEN and PELVIS: Intraperitoneal space: Unremarkable. No free air. No significant fluid collection. Bones/joints: No acute fracture. No dislocation. Soft tissues: Tiny fat-containing umbilical hernia. Vasculature: Unremarkable. No abdominal aortic aneurysm. Lymph nodes: Unremarkable. No enlarged lymph nodes. IMPRESSION: 1. No acute abnormality identified within the abdomen and pelvis. 2. Other findings as above. Electronically signed by: Savanna Paige MD 05/25/2022 2:54 AM CDT Due to temporary technical issues with the PACS/Fluency reporting system, reports are being signed by the in house radiologists without. review as a courtesy to insure prompt reporting. The interpreting radiologist is fully responsible for the content of the report.
== END 2022-05-25 05:11 | disposition home or self-care (01) ==
LOC: ER 00:30
DX: R10.32 Left lower quadrant pain (principal); R11.0 Nausea; R19.7 Diarrhea, unspecified; E03.9 Hypothyroidism, unspecified
CPT/HCPCS: 36415; 74177; 76705; 76830; 80053; 81003; 83690; 85025; J2405; J7030; Q9967